=== PATIENT | female | born 1980 | race Caucasian/White ===

== ENCOUNTER 2016-10-24 04:54 | Emergency (ER) | payer BC, OTHER ==
[2016-10-24] MEDS ORDERED: ONDANSETRON 4 MG VIAL ONE (05:41)
[2016-10-24] MEDS ORDERED: SODIUM CHLORIDE 0.9% 1,000 ML ONE (05:41)
== END 2016-10-24 07:58 | disposition home or self-care (01) ==
LOC: ER 04:54
DX: A08.4 Viral intestinal infection, unspecified (principal); F17.210 Nicotine dependence, cigarettes, uncomplicated
CPT/HCPCS: 36415; 80053; 83690; 84703; 85025; 96361; 96372; 96374